=== PATIENT | female | born 1960 | race Caucasian/White ===

== ENCOUNTER → 2017-03-25 | Outpatient (CLI) | payer BC ==
--- NOTE | 2017-03-25 14:21 | BD ---
EXAMINATION TYPE: MG DEXA axial skeleton. DATE OF EXAM: 03/25/2017 1:54 PM COMPARISON: NONE CLINICAL HISTORY: osteoporosis Height: 5'6 Weight: 152 FRAX RISK QUESTIONS: Alcohol (3 or more units per day): no Family History (Parent hip fracture): no Glucocorticoids (More than 3mos): no (Ex: prednisone, prednisolone, methylprednisolone, dexamethasone, and hydrocortisone). History of Fracture in Adulthood: yes Secondary Osteoporosis: 1. Type 1 Diabetes: no 2. Hyperthyroidism: no 3. Menopause before 45: no 4. Malnutrition: no 5. Chronic liver disease: no Rheumatoid Arthritis: yes Current Tobacco Use: no RISK FACTORS HISTORY OF: Diet low in dairy products/other sources of calcium: Postmenopausal woman: MEDICATIONS: Additional Medications: Humira, chrones disease, Additional History: EXAM MEASUREMENTS: Bone mineral densitometry was performed using the [employer] System. Bone mineral density as measured about the Lumbar spine is: ----- L1-L4(G/cm2): 1.089 T Score Values are as follows: ----- L2: -0.9 ----- L3: -0.8 ----- L4: -0.9 ----- L1-L4: -0.8 Bone mineral density about the R hip (g/cm2): 0.807 Bone mineral density about the L hip (g/cm2): 0.824 T Score values are as follows: -----R Neck: -1.7 -----L Neck: -1.5 -----R Total: -1.8 -----L Total: -1.4 IMPRESSION: Osteopenia (T Score between -2.5 and -1 as noted by T score values Nick Hips There is slightly increased risk of fracture and the patient may be considered for treatment. Re-Screen 2-5 years. NOTE: T-SCORE=SD OF THE YOUNG ADULT MEAN.
--- NOTE | 2017-03-30 11:40 | MM ---
Reason for exam: screening (asymptomatic). Last mammogram was performed 1 year ago. History: Patient is postmenopausal and had first child after 29. Family history of breast cancer in mother at age 60. Physical Findings: A clinical breast exam by your physician is recommended on an annual basis and results should be correlated with mammographic findings. MG Screening Mammo w CAD Bilateral CC and MLO view(s) were taken. Prior study comparison: March 19, 2016, bilateral MG screening mammo w CAD. February 21, 2015, bilateral MG screening mammo w CAD. The breast tissue is heterogeneously dense. This may lower the sensitivity of mammography. There is no discrete abnormality. ASSESSMENT: Negative, BI-RAD 1 RECOMMENDATION: Routine screening mammogram of both breasts in 1 year.
== END | disposition home or self-care (01) ==
LOC: RADMAMWWP 13:08
PROVIDERS: ATTEND Family Medicine
DX: Z12.31 Encounter for screening mammogram for malignant neoplasm of breast (principal); M85.80 Other specified disorders of bone density and structure, unspecified site
CPT/HCPCS: 77080; G0202

== ENCOUNTER → 2018-05-30 | Outpatient (CLI) | payer OTHER ==
--- NOTE | 2018-06-01 12:01 | MM ---
Reason for exam: screening (asymptomatic). Last mammogram was performed 1 year and 2 months ago. History: Patient is postmenopausal and had first child at age 34. Family history of breast cancer in mother at age 60. Physical Findings: A clinical breast exam by your physician is recommended on an annual basis and results should be correlated with mammographic findings. MG Screening Mammo w CAD Bilateral CC and MLO view(s) were taken. Prior study comparison: March 25, 2017, bilateral MG screening mammo w CAD. March 19, 2016, bilateral MG screening mammo w CAD. The breast tissue is heterogeneously dense. This may lower the sensitivity of mammography. No significant changes when compared with prior studies. ASSESSMENT: Negative, BI-RAD 1 RECOMMENDATION: Routine screening mammogram of both breasts in 1 year.
== END | disposition home or self-care (01) ==
LOC: RADMAMWWP 14:32
PROVIDERS: ATTEND Family Medicine
DX: Z12.31 Encounter for screening mammogram for malignant neoplasm of breast (principal)
CPT/HCPCS: 77067

== ENCOUNTER → 2018-10-28 | Outpatient (CLI) | payer OTHER ==
--- NOTE | 2018-10-28 08:41 | CT ---
EXAMINATION TYPE: CT sinus wo con DATE OF EXAM: 10/28/2018 COMPARISON: Prior CT sinus study August 05, 2016 HISTORY: Chronic sinusitis per order. Recurrent sinus infections with headaches and facial pain for [address] DLP: 603 mGycm. Automated Exposure Control for Dose Reduction was Utilized. TECHNIQUE: CT scan of the sinuses is performed without contrast, axial images are obtained, coronal r eformatted images are also reviewed. FINDINGS: Mild to minimal mucosal thickening inferior right maxillary sinus is redemonstrated. There is however new 2.0 cm mucous retention cyst or polyp coronal image 32 inferiorly extending along late ral margin of the right maxillary sinus. There is mild mucosal thickening inferiorly in the left maxi llary sinus improved in appearance from prior CT. There is evidence of interval surgery at level of ostiomeatal complex. Right side is patent. There is patency but narrowing on the left with antral mucosal thickening seen coronal image 29. There is mild to moderate mucosal thickening with patchy fluid in the inferior posterior right fronta l sinus. There is patchy opacification anterior right ethmoid sinuses axial image 33. Remainder of si nuses including left frontal and ethmoid sinuses and bilateral sphenoid sinuses show no suspicious op acification. There is stable 2.4 mm round ossific density or osteoma lateral left ethmoid sinusitis i mage 32. Visualized portion of mastoid air cells show no abnormal opacification. The globes are intact bilate rally. Visualized portion of brain parenchyma shows mild age-related cerebral atrophy. IMPRESSION: Interval sinus surgery with new 2.0 cm mucous retention cyst or polyp in the right maxill margret sinus. There is new mild acute sinusitis right frontal sinus with possible involvement of the ant erior ethmoid sinus on the right.
== END | disposition home or self-care (01) ==
LOC: RADCTMAIN 07:53
PROVIDERS: ATTEND Otolaryngology
DX: J01.10 Acute frontal sinusitis, unspecified (principal); Z98.890 Other specified postprocedural states
CPT/HCPCS: 70486

== ENCOUNTER 2019-02-16 08:06 | Day surgery (SDC) | payer OTHER ==
[2019-02-14 18:00] VITALS: BMI 24.2
[~2019-02-16 08:06] MED LIST: LACTATED RINGERS 1,000 ML IV SCH
[2019-02-16 08:24] VITALS: RESP 16; TEMP 96.9
[2019-02-16] MEDS ORDERED: LIDOCAINE 1% 20 ML VIAL (10MG/ML) FOR IV START INTRADERMA ONE (08:30)
[2019-02-16] MEDS ORDERED: PROPOFOL 10 MG/ML 20 ML VIAL IV ONE (08:55)
--- NOTE | 2019-02-16 09:26 | P.PCN ---
Date of Procedure: 02/16/19 Procedure(s) Performed: Procedure: Colonoscopy and biopsy. Preoperative diagnosis: History of Crohn's disease on Humira. Postoperative diagnosis: 1. S/P right colectomy with no obvious mucosal changes in the colon and small intestine to suggest active inflammatory bowel disease. 2. Multiple biopsies obtained randomly from the colon and biopsies were obtained from the small intestine. Preparation: HalfLytely prep. Sedation: Was provided by anesthesia. Brief clinical history: The patient is a 55-year-old female with history of Crohn's disease first diagnosed in April 1983. At that time she had a ruptured appendix and had removal of both small and large bowel at the time of surgery. The patient was steroid dependent and had treatment with Remicade for several years and has been on Humira since 2011. 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 The patient is scheduled for this evaluation because of the duration of illness and history of seizures risk factor for colon cancer. Her diarrhea has resolved by adding Metamucil to her diet. She has 2-4 bowel movements daily and overall feels well. Procedure: With the patient on her left lateral decubitus position and after informed consent and adequate sedation, the perianal area was inspected and it did did not show any obvious fissures or clinic fistulas. No masses were felt on digital rectal examination and there was minimal bleeding secondary to the rectal examination but no definite stenosis felt. The Olympus CFH 190L video colonoscope was then inserted in the rectum in the usual fashion and advanced to the right colon where she had the anastomosis with the small bowel. I was able to see a short distance of the small bowel and advance the endoscope into the small bowel. The area of the anastomosis with the small bowel was visualized and appeared normal. I obtained a biopsies of the small bowel. The colon in its entirety did not show any edema, erythema, friability, ulceration, exudation or spontaneous bleeding. I obtained random biopsies. No polyps or tumors were seen or any obvious diverticular disease. The endoscope was retroflexed in the rectum before it was withdrawn. Disposition: The patient tolerated the procedure well Plan: We will await pathology results then make additional plans based on her course and biopsy results. Would keep you updated on her progress.
[2019-02-16 09:36] VITALS: BP 116/77; PULSE 72
== END 2019-02-16 09:51 | disposition home or self-care (01) ==
LOC: ORWHC2ENDO 08:06
DX: K50.90 Crohn's disease, unspecified, without complications (principal); I10 Essential (primary) hypertension; M06.9 Rheumatoid arthritis, unspecified; Z88.0 Allergy status to penicillin; Z88.2 Allergy status to sulfonamides; F32.9 Major depressive disorder, single episode, unspecified; Z79.899 Other long term (current) drug therapy; Z90.49 Acquired absence of other specified parts of digestive tract; Z79.52 Long term (current) use of systemic steroids
CPT/HCPCS: 88305; 45380; J2704

== ENCOUNTER → 2019-07-07 | Outpatient (CLI) | payer OTHER ==
--- NOTE | 2019-07-10 10:35 | MM ---
Reason for exam: screening (asymptomatic). Last mammogram was performed 1 year and 1 month ago. History: Patient is postmenopausal and had first child at age 34. Family history of breast cancer in mother at age 60. Physical Findings: A clinical breast exam by your physician is recommended on an annual basis and results should be correlated with mammographic findings. MG Screening Mammo w CAD Bilateral CC and MLO view(s) were taken. Prior study comparison: May 30, 2018, bilateral MG screening mammo w CAD. March 25, 2017, bilateral MG screening mammo w CAD. The breast tissue is heterogeneously dense. This may lower the sensitivity of mammography. There is no discrete abnormality. No significant changes when compared with prior studies. ASSESSMENT: Negative, BI-RAD 1 RECOMMENDATION: Routine screening mammogram of both breasts in 1 year.
== END | disposition home or self-care (01) ==
LOC: RADMAMWWP 14:30
PROVIDERS: ATTEND Family Medicine
DX: Z12.31 Encounter for screening mammogram for malignant neoplasm of breast (principal)
CPT/HCPCS: 77067

== ENCOUNTER → 2020-09-12 | Outpatient (CLI) | payer OTHER ==
--- NOTE | 2020-09-13 13:43 | MM ---
Reason for exam: screening (asymptomatic). Last mammogram was performed 1 year and 2 months ago. History: Patient is postmenopausal and had first child at age 34. Family history of breast cancer in mother at age 60. Physical Findings: A clinical breast exam by your physician is recommended on an annual basis and results should be correlated with mammographic findings. MG Screening Mammo w CAD Bilateral CC and MLO view(s) were taken. Prior study comparison: July 07, 2019, bilateral MG screening mammo w CAD. May 30, 2018, bilateral MG screening mammo w CAD. The breast tissue is heterogeneously dense. This may lower the sensitivity of mammography. No significant changes when compared with prior studies. ASSESSMENT: Benign, BI-RAD 2 RECOMMENDATION: Routine screening mammogram of both breasts in 1 year.
== END | disposition home or self-care (01) ==
LOC: RADMAMWWP 11:09
PROVIDERS: ATTEND Family Medicine
DX: Z12.31 Encounter for screening mammogram for malignant neoplasm of breast (principal)
CPT/HCPCS: 77067

== ENCOUNTER → 2021-11-03 | Outpatient (CLI) | payer OTHER ==
--- NOTE | 2021-11-05 09:40 | MM ---
Reason for exam: screening (asymptomatic). Last mammogram was performed 1 year and 2 months ago. History: Patient is postmenopausal and had first child at age 34. Family history of breast cancer in mother at age 60. Physical Findings: A clinical breast exam by your physician is recommended on an annual basis and results should be correlated with mammographic findings. MG Screening Mammo w CAD Bilateral CC and MLO view(s) were taken. Prior study comparison: September 12, 2020, bilateral MG screening mammo w CAD. July 07, 2019, bilateral MG screening mammo w CAD. The breast tissue is heterogeneously dense. This may lower the sensitivity of mammography. No significant changes when compared with prior studies. ASSESSMENT: Benign, BI-RAD 2 RECOMMENDATION: Routine screening mammogram of both breasts in 1 year.
== END | disposition home or self-care (01) ==
LOC: RADMAMWWP 15:52
PROVIDERS: ATTEND Family Medicine
DX: Z12.31 Encounter for screening mammogram for malignant neoplasm of breast (principal)
CPT/HCPCS: 77067

== ENCOUNTER → 2022-11-04 | Outpatient (CLI) | payer BC ==
--- NOTE | 2022-11-04 16:55 | BD ---
EXAMINATION TYPE: Axial Bone Density DATE OF EXAM: 11/04/2022 COMPARISON: 03-25-17 CLINICAL HISTORY: 62 years year old Female. ICD-10 CODE: Z78.0 ASYMPTOMATIC MENOPAUSAL STATE Height: 65.25in Weight: 151LB FRAX RISK QUESTIONS: History of Fracture in Adulthood: YES Secondary Osteoporosis: RISK FACTORS HISTORY OF: Active: YES Postmenopausal woman: YES Take estrogen and/or progesterone medications: YES, NONE CURRENT How lon-5 YEARS MEDICATIONS: Additional Medications: HUMIRA, ANXIETY MED, LEXAPRO, VITAMIN D, BP MED, CHOLESTEROL MED Additional History: CROHNS DISEASE, FOOT FX EXAM MEASUREMENTS: Bone mineral densitometry was performed using the [employer] System. Bone mineral density as measured about the Lumbar spine is: ----- L1-L4(G/cm2): 1.056 T Score Values are as follows: ----- L1: -0.5 ----- L2: -1.0 ----- L3: -1.8 ----- L4: -1.0 ----- L1-L4: -1.0 Bone mineral density has: Decreased -4.0% since study of: 03-25-17 Bone mineral density about the R hip (g/cm2): 0.794 Bone mineral density about the L hip (g/cm2): 0.823 T Score values are as follows: -----R Neck: -1.9 -----L Neck: -1.6 -----R Total: -1.7 -----L Total: -1.5 Bone mineral density has: Increased 0.5% since study of: 03-25-17 FRAX%s: The graph provided illustrates a 17.1% chance for a major osteoporotic fx and a 2.4% chance f or the hips probability for fx in 10 years time. IMPRESSION: Osteopenia (T Score between -2.5 and -1). There is slightly increased risk of fracture and the patient may be considered for treatment. Re-Screen 2-5 years. NOTE: T-SCORE=SD OF THE YOUNG ADULT MEAN.
--- NOTE | 2022-11-05 18:29 | MM ---
Reason for Exam: Screening (asymptomatic). Last screening mammogram was performed 12 month(s) ago. Patient History: Menarche at age 13. First Full-Term at age 34. Late child-bearing (after 30). Left ovary removed at age 33. Postmenopausal. Mother had breast cancer, age 60. Risk Values: Lula 5 year model risk: 2.9%. NCI Lifetime model risk: 12.0%. Prior Study Comparison: 07/07/2019 Bilateral Screening Mammogram, [facility]. 09/12/2020 Bilateral Screening Mammogram, [facility]. 11/03/2021 Bilateral Screening Mammogram, [facility]. Tissue Density: The breast tissue is heterogeneously dense. This may lower the sensitivity of mammography. Findings: Analyzed By CAD. Areas of bilateral asymmetric density remain in. No significant change from prior. Overall Assessment: Benign, BI-RAD 2 Management: Screening Mammogram of both breasts in 1 year. 1. Patient should continue monthly self breast exams. 2. A clinical breast exam by your physician is recommended on an annual basis. 3. This exam should not preclude additional follow-up of suspicious palpable abnormalities. Electronically signed and approved by: Cintia Gutierrez M.D. Radiologist
== END | disposition home or self-care (01) ==
LOC: RADBDWWP 13:11
PROVIDERS: ATTEND Family Medicine
DX: Z12.31 Encounter for screening mammogram for malignant neoplasm of breast (principal); M85.89 Other specified disorders of bone density and structure, multiple sites; Z78.0 Asymptomatic menopausal state; Z80.3 Family history of malignant neoplasm of breast
CPT/HCPCS: 77067; 77080

== ENCOUNTER → 2023-11-08 | Outpatient (CLI) | payer BC ==
--- NOTE | 2023-11-09 18:38 | MM ---
Reason for Exam: Screening (asymptomatic). Last screening mammogram was performed 12 month(s) ago. Patient History: Menarche at age 13. First Full-Term at age 34. Late child-bearing (after 30). Left ovary removed at age 33. Postmenopausal. Estrogen, from age 49 until age 56. Mother had breast cancer, age 60. Risk Values: Lula 5 year model risk: 3.0%. NCI Lifetime model risk: 11.6%. Prior Study Comparison: 09/12/2020 Bilateral Screening Mammogram, [facility]. 11/03/2021 Bilateral Screening Mammogram, [facility]. 11/04/2022 Bilateral MG screening mammo w CAD, [facility]. Tissue Density: There are scattered fibroglandular densities. Findings: Analyzed By CAD. Pattern appears symmetrical and stable. No significant interval change. No suspicious groups of microcalcifications, spiculated or lobular masses, architectural distortion or other secondary signs of malignancy are mammographically apparent. Overall Assessment: Benign, BI-RAD 2 Management: Screening Mammogram of both breasts in 1 year. A negative mammogram report should not preclude additional follow up of suspicious palpable abnormalities. Patient should continue monthly self breast exam. A clinical breast exam by your physician is recommended on an annual basis and results should be correlated with mammographic findings. Electronically signed and approved by: Daniel Lockett D.O. Radiologis
== END | disposition home or self-care (01) ==
LOC: RADMAMWWP 16:03
PROVIDERS: ATTEND Family Medicine
DX: Z12.31 Encounter for screening mammogram for malignant neoplasm of breast (principal); Z78.0 Asymptomatic menopausal state; Z80.3 Family history of malignant neoplasm of breast
CPT/HCPCS: 77063; 77067

== ENCOUNTER → 2024-04-18 | Day surgery (SDC) | payer BC, MEDICARE ==
[~2024-04-18] MED LIST changes: -LACTATED RINGERS 1,000 ML IV SCH; +LIDOCAINE 2% (PF) 20 MG/ML 5 ML VIAL ONE; +PROPOFOL 10 MG/ML 20 ML VIAL IV ONE
[2024-04-18 09:05] VITALS: RESP 16; TEMP 97.2
[2024-04-18] MEDS: LACTATED RINGERS 1,000 ML IV SCH (09:11)
[2024-04-18] MEDS: IV FLUID CONTINUATION 1,000 ML IV ONE (09:11)
--- NOTE | 2024-04-18 09:39 | P.PCN ---
Date of Procedure: 04/18/24 Procedure(s) Performed: BRIEF HISTORY: Patient is a 63-year-old pleasant white female scheduled for an elective colonoscopy as a part of surveillance of longstanding history of Crohn's disease diagnosed in 1982. She is s/p terminal ileum and right colon resection several years ago. Presently she is maintained on Humira injections every 2 weeks centimeters in clinical remission. PROCEDURE PERFORMED: Colonoscopy with biopsy. PREOPERATIVE DIAGNOSIS: Longstanding history of Crohn's disease. IV sedation per Anesthesia. PROCEDURE: After informed consent was obtained, the patient, was brought into the endoscopy unit. IV sedation was administered by Anesthesia under continuous monitoring. Digital rectal examination was normal. Initially the Olympus CF-160 flexible video colonoscope was then inserted in the rectum, gradually advanced into the right colon without any difficulty. Careful examination was performed as the scope was gradually being withdrawn. The ileocolic anastomosis was visualized that appeared widely patent and normal. Mucosa of the ascending colon, transverse colon, descending colon, sigmoid colon, and rectum appeared normal. In the transverse colon there was a 2 cm submucosal lipoma that was biopsied. Retroflexion was performed in the rectum and no lesions were seen. The patient tolerated the procedure well. IMPRESSION: Normal-appearing colon from rectum to ileocolic anastomosis located in the right colon Widely patent ileocolic anastomosis 2 cm submucosal lipoma in the transverse colon s/p biopsy RECOMMENDATIONS: Findings of this examination were discussed with the patient as well as her family. She was advised to follow-up with the biopsy results. Recommended repeat colonoscopy in 5 years..
[2024-04-18 10:06] VITALS: BP 109/72; PULSE 62
== END ==
LOC: ORWHC2ENDO 08:24
PROVIDERS: ATTEND Internal Medicine Gastroenterology
DX: K63.5 Polyp of colon (principal); K50.90 Crohn's disease, unspecified, without complications; D17.5 Benign lipomatous neoplasm of intra-abdominal organs; M06.9 Rheumatoid arthritis, unspecified; I10 Essential (primary) hypertension; Z87.891 Personal history of nicotine dependence; Z98.890 Other specified postprocedural states; Z79.1 Long term (current) use of non-steroidal anti-inflammatories (NSAID); Z79.899 Other long term (current) drug therapy; Z90.49 Acquired absence of other specified parts of digestive tract; Z88.0 Allergy status to penicillin; Z88.2 Allergy status to sulfonamides
CPT/HCPCS: 88305; 45380; J2704; J2001

== ENCOUNTER → 2024-11-14 | Outpatient (CLI) | payer BC ==
--- NOTE | 2024-11-15 10:14 | MM ---
Reason for Exam: Screening (asymptomatic). Last screening mammogram was performed 12 month(s) ago. Patient History: Menarche at age 13. First Full-Term at age 34. Late child-bearing (after 30). Left ovary removed at age 33. Postmenopausal. Estrogen, from age 49 until age 56. Mother had breast cancer, age 60. Risk Values: Lula 5 year model risk: 3.1%. NCI Lifetime model risk: 11.3%. Prior Study Comparison: 11/03/2021 Bilateral Screening Mammogram, [facility]. 11/04/2022 Bilateral MG screening mammo w CAD, [facility]. 11/08/2023 Bilateral MG 3D screening mammo w/cad, [facility]. Tissue Density: The breasts are heterogeneously dense, which may obscure small masses. Findings: Analyzed By CAD. There are a few scattered benign-appearing tiny round calcifications redemonstrated There is no suspicious group of microcalcifications or new suspicious mass in either breast. Overall Assessment: Benign, BI-RAD 2 Management: Screening Mammogram of both breasts in 1 year. . Patient should continue monthly self-breast exams. A clinical breast exam by your physician is recommended on an annual basis. This exam should not preclude additional follow-up of suspicious palpable abnormalities. Note on Lula scores and lifetime risk: 1. A Lula score greater than 3% is considered moderate risk. If this is the case, consider specialist referral to assess eligibility for a risk reducing agent. 2. If overall lifetime risk for the development of breast cancer is 20% or higher, the patient may qualify for future screening with alternating mammogram and breast MRI. [facility], , 11/15/2024 10:11 AM. Electronically signed and approved by: Benito Rodriguez M.D.
== END | disposition home or self-care (01) ==
LOC: RADMAMWWP 16:02
PROVIDERS: ATTEND Family Medicine
DX: Z12.31 Encounter for screening mammogram for malignant neoplasm of breast (principal); Z78.0 Asymptomatic menopausal state; Z80.3 Family history of malignant neoplasm of breast; Z90.721 Acquired absence of ovaries, unilateral; R92.333 Mammographic heterogeneous density, bilateral breasts
CPT/HCPCS: 77063; 77067